=== PATIENT | male | born 1975 | race Two or more races ===

== ENCOUNTER 2019-02-19 13:15 | Outpatient (CLI) | payer BC | END 2019-02-19 23:59 | disposition home or self-care (01) | LOC: CFH 13:15 | PROVIDERS: ATTEND Specialist | DX: Z02.9 Encounter for administrative examinations, unspecified (principal) ==

== ENCOUNTER 2019-04-26 08:23 | Outpatient (CLI) | payer BC ==
[2019-04-26] MEDS ORDERED: NONE PER PT (09:01)
== END 2019-04-26 23:59 | disposition home or self-care (01) ==
LOC: STAR 08:23
PROVIDERS: ATTEND Specialist
DX: Z02.9 Encounter for administrative examinations, unspecified (principal)

== ENCOUNTER 2019-05-04 05:52 | Day surgery (SDC) | payer BC ==
[~2019-05-04] VITALS: Ht 172.7 cm; Wt 96.0 kg
[~2019-05-04 05:52] MED LIST: NONE PER PT
[2019-05-04 06:32] VITALS: BP 133/94
[2019-05-04] MEDS ORDERED: LACTATED RINGERS 1,000 ML IV SCH (06:33)
[2019-05-04] MEDS ORDERED: BUPIVACAINE/PF 0.5% ONE (06:48)
[2019-05-04] MEDS ORDERED: MUPIROCIN OINT 2%, 22GM ONE (06:48)
[2019-05-04] MEDS ORDERED: EPINEPHRINE TOPICAL SOLN 1 MG/ML, 30ML ONE (06:48)
[2019-05-04] MEDS ORDERED: OXYMETAZOLINE NASAL SPRAY 0.05%, 15ML ONE (06:49)
[2019-05-04] MEDS ORDERED: EPINEPHRINE 1 MG/ML, 1ML ONE (06:49)
[2019-05-04] MEDS ORDERED: COCAINE TOPICAL SOLN 4%, 4ML ONE (06:49)
[2019-05-04] MEDS ORDERED: LIDOCAINE 1%, 20ML ONE (06:49)
[2019-05-04] MEDS ORDERED: ACETAMINOPHEN 500 MG TABLET ONE ×2 (07:11)
[2019-05-04] MEDS ORDERED: GABAPENTIN 300 MG CAPSULE ONE (07:11)
[2019-05-04] MEDS ORDERED: FENTANYL PF 250 MCG/5ML ONE (07:29)
[2019-05-04] MEDS ORDERED: MIDAZOLAM 1 MG/ML, 2ML ONE (07:29)
[2019-05-04] MEDS ORDERED: FENTANYL PF 100 MCG/2ML IV PRN (07:30)
[2019-05-04] MEDS ORDERED: ACETAMINOPHEN 500 MG TABLET PO ONE (07:30)
[2019-05-04] MEDS ORDERED: MEPERIDINE/PF 25MG/ML,1ML IVPush PRN (07:30)
[2019-05-04] MEDS ORDERED: HALOPERIDOL 5 MG/ML IV PRN (07:30)
[2019-05-04] MEDS ORDERED: HYDROmorphone 2 MG/ML, 1ML IVPush PRN (07:30)
[2019-05-04] MEDS ORDERED: OXYcodone 5 MG/5 ML ORAL.SOL UDC PO PRN (07:30)
[2019-05-04] MEDS ORDERED: hydrALAzine 20 MG/ML, 1ML IV PRN (07:30)
[2019-05-04] MEDS ORDERED: GABAPENTIN 300 MG CAPSULE PO ONE (07:30)
[2019-05-04] MEDS ORDERED: LABETALOL 5MG/ML, 20ML IV PRN (07:30)
[2019-05-04] MEDS ORDERED: PROMETHAZINE 25 MG/ML, 1ML IV PRN (07:30)
[2019-05-04] MEDS ORDERED: CEFAZOLIN 1,000 MG ONE (09:00)
[2019-05-04] MEDS ORDERED: PROPOFOL 10 MG/ML, 20ML ONE (09:00)
[2019-05-04] MEDS ORDERED: NEOSTIGMINE 1 MG/ML, 10ML ONE (09:00)
[2019-05-04] MEDS ORDERED: ONDANSETRON 2MG/ML, 2ML ONE (09:00)
[2019-05-04] MEDS ORDERED: ROCURONIUM 10MG/ML,5ML ONE (09:00)
[2019-05-04] MEDS ORDERED: DEXAMETHASONE 4 MG/ML, 1ML ONE (09:00)
[2019-05-04] MEDS ORDERED: GLYCOPYRROLATE 0.2MG/1ML, 5ML ONE (09:00)
[2019-05-04] MEDS ORDERED: SUCCINYLCHOLINE 20 MG/ML, 10ML ONE (09:00)
== END 2019-05-04 11:45 | disposition home or self-care (01) ==
LOC: OUT 05:52
PROVIDERS: ATTEND Specialist
DX: J34.2 Deviated nasal septum (principal); J34.89 Other specified disorders of nose and nasal sinuses; J31.0 Chronic rhinitis
CPT/HCPCS: 30140; 30520; J0171; J0330; J0690; J1100; J2250; J2405; J2704; J3010; J7120; J2710